=== PATIENT | female | born 1965 | race African-American/Black ===

== ENCOUNTER 2017-12-24 20:10 | Emergency (ER) | payer MEDICAID ==
[~2017-12-24] VITALS: Ht 160 cm; Wt 145.4 kg
[2017-12-24] MEDS ORDERED: ANXIETY PO (20:34)
[2017-12-24] MEDS ORDERED: OMEP20TA2 PO (20:34)
[2017-12-24] MEDS ORDERED: OMEPRAZOLE 20 MG CAPSULE PO ONE (21:00)
[2017-12-24] MEDS ORDERED: HydrOXYzine HCL 25 MG TABLET PO ONE (21:00)
[2017-12-24 22:05] VITALS: BP 130/79
== END 2017-12-24 22:06 | disposition home or self-care (01) ==
LOC: EMS 20:18
DX: F41.9 Anxiety disorder, unspecified (principal); K21.9 Gastro-esophageal reflux disease without esophagitis
CPT/HCPCS: 99284

== ENCOUNTER 2018-03-05 23:48 | Emergency (ER) | payer MEDICAID ==
[~2018-03-05] VITALS: Ht 175.3 cm; Wt 140.9 kg
[~2018-03-05 23:48] MED LIST: ANXIETY PO; OMEP20TA2 PO
[2018-03-06] MEDS ORDERED: SERT100T12 PO (00:10)
[2018-03-06] MEDS ORDERED: LORazepam 1 MG TABLET PO ONE (01:15)
[2018-03-06] MEDS ORDERED: KETOROLAC TROMETHAMINE 60 MG/2 ML VIAL IM ONE (01:15)
[2018-03-06 02:41] VITALS: BP 152/78
== END 2018-03-06 02:45 | disposition home or self-care (01) ==
LOC: EMS 23:48
DX: F41.9 Anxiety disorder, unspecified (principal); E66.9 Obesity, unspecified; R51 Headache; K21.9 Gastro-esophageal reflux disease without esophagitis; Z68.42 Body mass index [BMI] 45.0-49.9, adult
CPT/HCPCS: 81025; 96372; 99284; J1885

== ENCOUNTER 2018-07-16 23:13 | Emergency (ER) | payer MEDICAID ==
[~2018-07-16] VITALS: Ht 170.2 cm; Wt 145.4 kg
[~2018-07-16 23:13] MED LIST changes: -ANXIETY PO; +SERT100T12 PO
[2018-07-16 23:28] VITALS: BP 149/107
[2018-07-16 23:51] LABS: BASOPHILS % (AUTO) 0.3 % (0.0-2.0); EOSINOPHILS % (AUTO) 1.1 % (1.0-6.0); HEMATOCRIT 33.1 % (36-46); HEMOGLOBIN 10.5 g/dL (12.0-16.0); LYMPHOCYTES # (AUTO) 2.5 K/uL (1.0-4.8); LYMPHOCYTES % (AUTO) 25.8 % (22.0-44.0); MEAN CORPUSCULAR HEMOGLOBIN 26.1 pg (26.0-34.0); MEAN CORPUSCULAR HGB CONC 31.7 G/dL (31.0-37.0); MEAN CORPUSCULAR VOLUME 82 fL (80-100); MONOCYTES # (AUTO) 0.6 K/uL (0.1-1.0); MONOCYTES % (AUTO) 6.7 % (2.0-9.0); NEUTROPHILS # (AUTO) 6.3 K/uL (1.8-7.7); NEUTROPHILS % (AUTO) 66.1 % (40.0-70.0); PLATELET COUNT (AUTO) 348 K/uL (150-450); RED BLOOD CELL COUNT(AUTO) 4.03 MIL/uL (4.00-5.20)
[2018-07-17] LABS: APPEARANCE,URINE CLEAR (CLEAR); BILIRUBIN,URINE NEGATIVE (NEGATIVE); GLUCOSE, URINE (UA) NEGATIVE (NEGATIVE); KETONES,URINE NEGATIVE (NEGATIVE); LEUKOCYTE ESTERASE ,URINE NEGATIVE (NEGATIVE); NITRATE,URINE NEGATIVE (NEGATIVE); OCCULT BLOOD,URINE NEGATIVE (NEGATIVE); PROTEIN,URINE NEGATIVE (NEGATIVE)
[2018-07-17] LABS: ANION GAP 5 mmol/L (8-16); CALCIUM, TOTAL 9.3 mg/dL (8.8-10.5); CARBON DIOXIDE 31 mmol/L (22-29); CHLORIDE 104 mmol/L (98-107); CREATININE 1.08 mg/dL (0.60-1.30); GLOMERULAR FILTR. RATE CALC > 60 mL/min (>60); GLUCOSE,RANDOM 196 mg/dL (70-110); POTASSIUM 4.2 mmol/L (3.5-5.1); SODIUM SERUM 140 mmol/L (136-145); UREA NITROGEN, BLOOD 14 mg/dL (7-18)
[2018-07-17 00:11] LABS: ALANINE AMINOTRANSFERASE 20 U/L (12-78); ALBUMIN 3.1 g/dL (3.4-5.0); ALKALINE PHOSPHATASE 145 U/L (46-116); AMYLASE 33 U/L (25-115); ASPARTATE AMINOTRANSFERASE 14 U/L (15-37); BILIRUBIN,TOTAL 0.2 mg/dL (0.1-1.0); HCG,QUANTITATIVE < 1 mIU/mL (0-6); LIPASE 117 U/L (73-393); TOTAL PROTEIN, SERUM 7.6 g/dL (6.4-8.2)
[2018-07-17] MEDS ORDERED: LORazepam 1 MG TABLET ONE (01:39)
[2018-07-17] MEDS ORDERED: LORazepam 1 MG TABLET PO ONE (01:45)
== END 2018-07-17 02:02 | disposition home or self-care (01) ==
LOC: EMS 23:14
DX: K21.9 Gastro-esophageal reflux disease without esophagitis (principal); F41.9 Anxiety disorder, unspecified; E66.9 Obesity, unspecified; Z68.43 Body mass index [BMI] 50.0-59.9, adult